=== PATIENT | female | born 1970 | race Caucasian/White ===

== ENCOUNTER 2016-11-02 12:59 | Outpatient (CLI) ==
[2016-11-02 13:13] VITALS: BMI 24.0
== END 2016-11-02 13:00 ==
LOC: AMBL 12:59
PROVIDERS: ATTEND Internal Medicine
DX: R56.9 Unspecified convulsions (principal); R53.1 Weakness

== ENCOUNTER 2016-11-02 13:06 | Emergency (ER) ==
[2016-11-02 13:13] VITALS: BP 106/60; TEMP 98; BMI 24.0
== END 2016-11-02 13:25 | disposition left against medical advice (07) ==
LOC: ED 13:06
DX: R56.9 Unspecified convulsions (principal)
CPT/HCPCS: 99282